=== PATIENT | male | born 1960 | race African-American/Black ===

== ENCOUNTER 2018-07-19 16:17 | Emergency (ER) | payer OTHER ==
[2018-07-19 16:30] VITALS: BP 122/49; PULSE 101; TEMP 98.2; BMI 25.8
--- NOTE | 2018-07-19 20:26 | PDOC ---
Attending Attestation - HPI HPI: 07/19/18 20:28 The patient is a 57 year old male, with no significant past medical history, who presents to the emergency department with diarrhea for the past 4 days. The patient reports that he had a prostate biopsy done 4 days ago for which he was given prophylactic antibiotics (Levaquin and Bactrim). He states that he has been experiencing multiple episodes of watery diarrhea over the past 4 days in addition to some hematuria. He called the doctor who performed the prostate biopsy about the diarrhea and was advised to stop taking the antibiotics. He stopped taking the antibiotics yesterday but continues to experience the episodes of diarrhea, prompting him to come to the emergency department for evaluation. He denies fever, chills, nausea, vomiting, diarrhea or dysuria. Allergies: None reported. Past Surgical History: None reported. Social History: Non-smoker. Denies alcohol or drug use. Documentation prepared by Chanelle Holloway, acting as medical detailist for Candelaria Padron MD. <Chanelle Arechiga - Last Filed: 07/19/18 20:29> - Resident Resident Name: Pedrito Graham - ED Attending Attestation I have performed the following: I have examined & evaluated the patient, The case was reviewed & discussed with the resident, I agree w/resident's findings & plan, Exceptions are as noted - Physicial Exam PE: GENERAL: Awake, alert, and fully oriented, in no acute distress HEAD: No signs of trauma EYES: PERRLA, EOMI, sclera anicteric, conjunctiva clear ENT: Auricles normal inspection, hearing grossly normal, nares patent, oropharynx clear without exudates. Dry mucosa NECK: Normal ROM, supple, no lymphadenopathy, JVD, or masses LUNGS: Breath sounds equal, clear to auscultation bilaterally. No wheezes, and no crackles HEART: Regular rate and rhythm, normal S1 and S2, no murmurs, rubs or gallops ABDOMEN: Soft, nontender, normoactive bowel sounds. No guarding, no rebound. No masses EXTREMITIES: Normal range of motion, no edema. No clubbing or cyanosis. No cords, erythema, or tenderness NEUROLOGICAL: Cranial nerves II through XII grossly intact. Normal speech, normal gait SKIN: Warm, Dry, normal turgor, no rashes or lesions noted. - Medical Decision Making DDx includes prostatitis (unlikely in the absence of prostate tenderness), UTI, C Diff, and diarrhea as a side effect of the medication. Will obtain stool O&P, C Diff antigen, UA. <Candelaria Padron - Last Filed: 07/19/18 20:33>
--- NOTE | 2018-07-19 20:44 | PDOC ---
History of Present Illness - General Chief Complaint: Pain, Acute Stated Complaint: VOMITING/DIARRHEA Time Seen by Provider: 07/19/18 19:39 History Source: Patient - History of Present Illness Initial Comments: 07/19/18 20:26 Pt. is a 57 y.o. M with PMHx. of "difficulty maintaining stream of urine for 6 months" and s/p prostate biopsy through the rectum on 07/16/18, presents with nausea, vomiting and diarrhea for 3 days. Pt. states that his urologist (Dr. Molina) prescribed him Abx. (Bactrim and Flagyl) to start on Monday before the biopsy for 7 days. Pt. states that the nausea, vomiting and diarrhea started on Monday and that he has been having ~6 episodes of diarrhea a day since. Pt. endorses blood in the stool and in the urine since the biopsy but that they resolved yesterday on its own. Pt. states that he has decreased appetite since onset of nausea, vomiting and diarrhea though he has been trying to hydrate himself with lemon and ina water. Pt. states that he had a subjective fever at home and chills but that he never measured himself with a thermometer. Of note Pt. had a colonoscopy in 2014 with removal of 2 polyps and was advised to have a repeat colonoscopy in a couple years which he has not done. Pt. has significant PMHx. of Lung cancer with his mother, "throat cancer with his maternal aunt and an unknown cancer with his maternal grandmother. Pt. endorses less than a pack a day smoking history for 20+ years. 07/19/18 20:48 C.Diff Ag and toxin, UA, FOBT sent Timing/Duration: constant Associated Symptoms: reports: fever/chills, headaches, loss of appetite, nausea/ vomiting Aspirin Received prior to arrival: Yes: no aspirin today Past History - Past Medical History Allergies/Adverse Reactions: Allergies Allergy/AdvReac Type Severity Reaction Status Date / Time No Known Allergies Allergy Verified 01/09/15 16:52 Home Medications: Ambulatory Orders Cephalexin [Keflex] 500 mg PO BID #14 capsule 07/19/18 Asthma: Yes (CHILDHOOD) COPD: No - Immunization History Immunization Up to Date: Yes - Suicide/Smoking/Psychosocial Hx Smoking History: Never smoked Have you smoked in the past 12 months: Yes Number of Cigarettes Smoked Daily: 10 Information on smoking cessation initiated: No 'Breaking Loose' booklet given: 01/09/15 Hx Alcohol Use: No Drug/Substance Use Hx: No Substance Use Type: None *Physical Exam - Vital Signs Last Vital Signs Temp Pulse Resp BP Pulse Ox 98.2 F 101 H 16 122/49 L 97 07/19/18 16:26 07/19/18 16:26 07/19/18 16:26 07/19/18 16:26 07/19/18 16:26 - Physical Exam General Appearance: Yes: Appropriately Dressed, Mild Distress HEENT: positive: Normal Voice, Symmetrical Respiratory/Chest: positive: Lungs Clear, Normal Breath Sounds Cardiovascular: positive: Regular Rhythm, Regular Rate, S1, S2, Other (2+ radial pulses b/l) Gastrointestinal/Abdominal: positive: Normal Bowel Sounds, Soft. negative: Guarding, Rebound, Tenderness Male Genitalia: positive: normal prostate Rectal Exam: positive: normal exam, normal rectal tone. negative: hemorrhoids Musculoskeletal: negative: CVA Tenderness Extremity: positive: Normal Capillary Refill, Normal Inspection, Normal Range of Motion. negative: Pedal Edema, Calf Tenderness Neurologic: positive: Fully Oriented, Alert Moderate Sedation - Procedure Monitoring Vital Signs: Procedure Monitoring Vital Signs Temperature 98.2 F 07/19/18 16:26 Pulse Rate 101 H 07/19/18 16:26 Respiratory Rate 16 07/19/18 16:26 Blood Pressure 122/49 L 07/19/18 16:26 O2 Sat by Pulse Oximetry (%) 97 07/19/18 16:26 *DC/Admit/Observation/Transfer Diagnosis at time of Disposition: Nausea & vomiting Qualifiers: Vomiting type: unspecified Vomiting Intractability: unspecified Qualified Code( s): R11.2 - Nausea with vomiting, unspecified Diarrhea Qualifiers: Diarrhea type: unspecified type Qualified Code(s): R19.7 - Diarrhea, unspecified - Discharge Dispostion Disposition: HOME Condition at time of disposition: Stable - Referrals Referrals: Bridger Ochoa MD [Primary Care Provider] - - Patient Instructions - Post Discharge Activity
[2018-07-19 20:56] LABS: URINE APPEARANCE SLCLOUDY; URINE BILIRUBIN NEGATIVE (<2.0 mg/dL); URINE COLOR AMBER; URINE GLUCOSE (UA) NEGATIVE (NEGATIVE); URINE KETONE 1+ (NEGATIVE); URINE LEUK ESTERASE 1+ (NEGATIVE); URINE NITRITE NEGATIVE (NEGATIVE); URINE PROTEIN 2+ (NEGATIVE)
[2018-07-19 20:58] LABS: EPI CELLS RARE /HPF (FEW); URINE HYALINE CAST 32 /lpf; URINE MUCUS MANY
== END 2018-07-19 22:42 | disposition home or self-care (01) ==
LOC: JER 16:17
DX: R50.9 Fever, unspecified (principal); R11.2 Nausea with vomiting, unspecified; Z98.890 Other specified postprocedural states
CPT/HCPCS: 36415; 81003; 81015; 82272; 87324; 87449; 99282-25

== ENCOUNTER 2019-01-29 11:54 | Emergency (ER) | payer OTHER ==
[2019-01-29 12:00] VITALS: BP 128/87; PULSE 89; TEMP 97.9; BMI 26.6
[2019-01-29] MEDS ORDERED: KETOROLAC TROMETHAMINE 60 MG/2 ML VIAL IM ONE (13:08)
--- NOTE | 2019-01-29 13:10 | PDOC ---
History of Present Illness - General Chief Complaint: Pain, Acute Stated Complaint: LT KNEE PAIN Time Seen by Provider: 01/29/19 12:53 - History of Present Illness Initial Comments: 01/29/19 13:09 58-year-old male without comorbidities presents for evaluation of atraumatic left knee pain times one day. Points to the lateral aspect of the left knee as the area of his discomfort. Past History - Past Medical History Allergies/Adverse Reactions: Allergies Allergy/AdvReac Type Severity Reaction Status Date / Time No Known Allergies Allergy Verified 01/29/19 12:00 Home Medications: Ambulatory Orders Ibuprofen [Motrin -] 600 mg PO TID #30 tablet 01/29/19 Asthma: Yes (CHILDHOOD) COPD: No - Immunization History Immunization Up to Date: Yes - Suicide/Smoking/Psychosocial Hx Smoking History: Never smoked Have you smoked in the past 12 months: Yes Number of Cigarettes Smoked Daily: 10 'Breaking Loose' booklet given: 01/09/15 Hx Alcohol Use: No Drug/Substance Use Hx: No Substance Use Type: None Review of Systems - Review of Systems Constitutional: No: Fever Musculoskeletal: Yes: Joint Pain *Physical Exam - Vital Signs Last Vital Signs Temp Pulse Resp BP Pulse Ox 97.9 F 89 18 128/87 98 01/29/19 11:58 01/29/19 11:58 01/29/19 11:58 01/29/19 11:58 01/29/19 11:58 - Physical Exam Comments: 01/29/19 13:09 Left knee skin color and temperature are normal range of motion 0-90 with pain at the lateral aspect of the left knee with terminal flexion. The only area of tendernesses about the lateral femoral condyle and fibular head. No tenderness about the lateral collateral ligament. No instability or joint line tenderness. No patellofemoral apprehension or instability neurovascularly intact. Thighs and calves are soft and nontender negative straight leg raise test ED Treatment Course - RADIOLOGY Radiology Studies Ordered: Category Date Time Status KNEE 3 POS-LEFT [RAD] Stat Radiology 01/29/19 13:08 Ordered Medical Decision Making - Medical Decision Making 01/29/19 13:33 X-rays of the left knee show no evidence of fracture or trauma there is mild arthritic changes. This may be an early gout attack or hamstring strain he is tender over his iliotibial band as well but this was an acute onset of pain which has lasted since the morning time. I will give him crutches have him weight-bear as tolerated Motrin prescription have him follow-up with orthopedic surgery. *DC/Admit/Observation/Transfer Diagnosis at time of Disposition: Knee pain, left - Discharge Dispostion Disposition: HOME Condition at time of disposition: Stable Decision to Admit order: No - Referrals Referrals: Rojas Geller DO [Staff Physician] - - Patient Instructions Additional Instructions: Weight-bear as tolerated with crutches. Motrin one tablet 3 times a day as directed on the prescription please take the medication with food and discontinue the medication at about his her stomach. Return to the emergency room for worsening symptoms and follow-up with orthopedic surgery in once 2 days for further evaluation and treatment options without fail. DO NOT START THE MOTRIN UNTIL TOMORROW, YOU WERE GIVEN AN INJECTION OF A LONG ACTING ANTIINFLAMATORY IN THE EMERGENCY ROOM TODAY - Post Discharge Activity
[2019-01-29] MEDS ORDERED: KETOROLAC TROMETHAMINE 60 MG/2 ML VIAL ONE (13:11)
== END 2019-01-29 13:39 | disposition home or self-care (01) ==
LOC: JERFT 11:54
PROC: 3E0233Z Introduction of Anti-inflammatory into Muscle, Percutaneous Approach (ICD-10-PCS; principal; 2019-01-29)
DX: M25.562 Pain in left knee (principal)
CPT/HCPCS: 73562-TC-LT-FY; 99282-25

== ENCOUNTER 2020-01-14 07:20 | Emergency (ER) | payer MEDICARE, OTHER ==
[2020-01-14] MEDS ORDERED: DEXAMETHASONE LIQUID 0.5 MG/5 ML PO ONE (07:47)
[2020-01-14 07:48] VITALS: TEMP 98; BMI 24.3
[2020-01-14] MEDS ORDERED: AZITHROMYCIN 500 MG TABLET PO ONE (07:48)
--- NOTE | 2020-01-14 07:49 | PDOC ---
History of Present Illness - General Chief Complaint: Sore Throat Stated Complaint: THROAT SWELLING Time Seen by Provider: 01/14/20 07:46 History Source: Patient Exam Limitations: No Limitations Past History - Travel Traveled outside of the country in the last 30 days: No Close contact w/someone who was outside of country & ill: No - Medical History Allergies/Adverse Reactions: Allergies Allergy/AdvReac Type Severity Reaction Status Date / Time No Known Allergies Allergy Verified 01/14/20 07:37 Home Medications: Ambulatory Orders Emtricitabine/Tenofovir (Tdf) [Truvada 200 mg-300 mg Tablet] 1 each PO DAILY #90 tablet 10/23/19 predniSONE [Deltasone -] 40 mg PO DAILY #8 tablet 01/14/20 Asthma: Yes (CHILDHOOD) Cardiac Disorders: No COPD: No Diabetes: No HTN: No Hypercholesterolemia: No Seizures: No Thyroid Disease: No - Immunization History Immunization Up to Date: Yes - Psycho-Social/Smoking History Smoking History: Current every day smoker Have you smoked in the past 12 months: Yes Number of Cigarettes Smoked Daily: 10 Information on smoking cessation initiated: No 'Breaking Loose' booklet given: 01/09/15 Hx Alcohol Use: No Drug/Substance Use Hx: No Substance Use Type: None Review of Systems - Review of Systems Able to Perform ROS?: Yes Comments:: 01/14/20 07:58 CONSTITUTIONAL: Absent: fever, chills, diaphoresis, generalized weakness, malaise, loss of appetite HEENT: Present: sore throat Absent: rhinorrhea, nasal congestion, throat pain, throat swelling, difficulty swallowing, mouth swelling, ear pain, eye pain, visual Changes CARDIOVASCULAR: Absent: chest pain, loss of consciousness, palpitations, irregular heart rate, peripheral edema RESPIRATORY: Absent: cough, shortness of breath, dyspnea with exertion, orthopnea, wheezing, stridor, hemoptysis GASTROINTESTINAL: Absent: abdominal pain, abdominal distension, nausea, vomiting, diarrhea, con stipation, melena, hematochezia GENITOURINARY: Absent: dysuria, frequency, urgency, hesitancy, hematuria, flank pain, genital pain MUSCULOSKELETAL: Absent: myalgia, arthralgia, joint swelling SKIN: Absent: rash, itching, pallor HEMATOLOGIC/IMMUNOLOGIC: Absent: easy bleeding, easy bruising, lymphadenopathy, frequent infections ENDOCRINE: Absent: unexplained weight gain, unexplained weight loss, heat intolerance, cold intolerance NEUROLOGIC: Absent: headache, focal weakness or paresthesias, dizziness, unsteady gait, seizure, mental status changes, bladder or bowel incontinence PSYCHIATRIC: Absent: anxiety, depression, suicidal or homicidal ideation, hallucinations. Is the patient limited Malay proficient: No *Physical Exam - Vital Signs Last Vital Signs Temp Pulse Resp BP Pulse Ox 98 F 81 18 130/89 100 01/14/20 07:25 01/14/20 07:25 01/14/20 07:25 01/14/20 07:25 01/14/20 07:25 - Physical Exam 01/14/20 07:58 GENERAL: The patient is awake, alert, and fully oriented, in no acute distress. HEAD: Normal with no signs of trauma. EYES: Pupils equal, round and reactive to light, extraocular movements intact, sclera anicteric, conjunctiva clear. U ENT: No nasal congestion or rhinorrhea. No sinus Tenderness. Mucous membranes are moist. vula is mildly edematous/midline and erythematous. Tonsils erythematous as well without exudate or edema. No TM bulging, dullness or erythema EXTREMITIES: Normal range of motion, no edema. NEUROLOGICAL: Normal speech, normal gait. PSYCH: Normal mood, normal affect. SKIN: Warm, Dry, normal turgor, no rashes or lesions noted. Medical Decision Making - Medical Decision Making 01/14/20 08:05 The patient is a 59-year-old male with no past medical history, who presents to the ER for sore throat. He states he woke up this morning with a sore throat and was concerned about "tasting the wrong the vagina ". He states he has had a new sexual partner within the last week. Denies fevers, chills, cough, ear infection, difficulty breathing, shortness of breath, nausea, vomiting and diarrhea. Denies dysuria and penile discharge. A/P: Pharyngitis On exam the patient has a mildly edematous uvula with associated erythema. It is midline. Tonsils are also mildly erythematous without exudate or edema. Given sexual history, will treat empirically with ceftriaxone and azithromycin. In addition with possible uvulitis, Decadron given in the ER. Strep culture, GC/chlamydia culture also sent. 01/14/20 09:47 While waiting for GC/Chlamydia test, pt reports that he has had chest pain over the past 3 to 4 days. He states that the pain is worse with movement and hurts when he touches his upper back. He states that when he uses Ben[employer] to his upper back his pain gets better. EKG: Rate 65 bpm, normal sinus rhythm. No acute ST-T wave changes. Normal intervals and axis. Overall normal EKG. Pain is reproducible on exam. Likely musculoskeletal pain. Swab has arrived from micro. Rapid strep test is negative. We will discharge home with return precautions for uvulitis and have him follow- up with his primary care doctor I discussed the physical exam findings, ancillary test results and final diagnoses with the patient. I answered all of the patient's questions. The patient was satisfied with the care received and felt comfortable with the discharge plan and treatment plan. The Patient agrees to follow up with the primary care physician/specialist within 24-72 hours. Return precautions were given. Discharge - Discharge Information Problems reviewed: Yes Clinical Impression/Diagnosis: High risk heterosexual behavior, Sore throat - Additional Discharge Information Prescriptions: predniSONE [Deltasone -] 40 mg PO DAILY #8 tablet - Follow up/Referral Referrals: Bridger Ochoa MD [Primary Care Provider] - - Patient Discharge Instructions Patient Printed Discharge Instructions: DI for Uvulitis Additional Instructions: You were seen for your throat pain today. You were tested for STDs and treated empirically. Your strep test was negative. Your EKG was normal today. Your uvula was a little swollen today. Please take the steroids as directed starting tomorrow to help with the pain and swelling. Please follow-up with your primary care doctor this week. Return to the ER for worsening chest pain, difficulty breathing, throat swelling or if you have any changes in your symptoms. - Post Discharge Activity Work/Back to School Note: Back to Work
[2020-01-14] MEDS ORDERED: DEXAMETHASONE SOD PHOSPHATE 10 MG/1 ML VIAL ONE (07:50)
[2020-01-14] MEDS ORDERED: AZITHROMYCIN 500 MG TABLET ONE (07:51)
[2020-01-14 10:06] VITALS: BP 128/80; PULSE 86
--- NOTE | 2020-01-14 12:52 | EKG ---
Test Reason : Blood Pressure : / mmHG Vent. Rate : 065 BPM Atrial Rate : 065 BPM P-R Int : 160 ms QRS Dur : 082 ms QT Int : 420 ms P-R-T Axes : 066 024 056 degrees QTc Int : 436 ms NORMAL SINUS RHYTHM POSSIBLE LEFT ATRIAL ENLARGEMENT BORDERLINE ECG NO PREVIOUS ECGS AVAILABLE Confirmed by Leo Melgar ([id number]) on 01/14/2020 12:52:05 PM Referred By: Confirmed By:Leo Melgar
== END 2020-01-14 10:06 | disposition home or self-care (01) ==
LOC: JER 07:20
DX: R07.0 Pain in throat (principal)
CPT/HCPCS: 36415; 87070; 87880; 93005; 93010; 99284-25